=== PATIENT | female | born 1990 | race Two or more races ===

== ENCOUNTER 2018-12-22 20:32 | Emergency (ER) | payer MEDICAID ==
[~2018-12-22] VITALS: Ht 152.4 cm; Wt 88.5 kg
--- NOTE | 2018-12-22 20:39 | NUR ---
PT CAME IN TO ER BIB [facility] WITH AT BEDSIDE WITH C/O DIZZINESS. PT STATES THAT A FEW DAYS AGO SHE HAD BEEN PRESCRIBED BACTRIM BY HER DOCTOR BECAUSE SHE WAS UNABLE TO URINATE. SHE HAD DIARRHEA AFTER TAKING BACTRIM. PATIENT STATES THAT SHE HAD THEN FELT DIZZY WHEN SHE LAID ON HER BED. AAOX4. NO SOB. BREATHING EVENLY AND UNLABORED. CONNECTED TO MONITOR.
--- NOTE | 2018-12-22 20:46 | NUR ---
PA ZEPHYUR AT BEDSIDE
--- NOTE | 2018-12-22 20:55 | NUR ---
PARENTS AT BEDSIDE
[2018-12-22] MEDS ORDERED: IV NS 0.9% 500 ML BAG IV ONE (21:00)
[2018-12-22] MEDS ORDERED: MECLIZINE HCL 12.5 MG TABLET PO ONE (21:00)
[2018-12-22] MEDS ORDERED: MECLIZINE HCL 25 MG TABLET ONE (21:02)
[2018-12-22 21:15] LABS: BASOPHILS # (AUTO) 0.1 /CMM (0.0-0.2); EOSINOPHILS % (AUTO) 0.3 % (0.0-6.0); HEMATOCRIT 39 % (33-45); LYMPHOCYTES # (AUTO) 2.5 /CMM (0.8-4.8); LYMPHOCYTES % (AUTO) 23.6 % (20.0-44.0); MEAN CORPUSCULAR HGB CONC 34 g/dl (31.0-36.0); MEAN CORPUSCULAR VOLUME 85 fL (82-100); MONOCYTES # (AUTO) 0.5 /CMM (0.1-1.30); MONOCYTES % (AUTO) 4.5 % (2.0-12.0); NEUTROPHILS # (AUTO) 7.4 /CMM (1.8-8.9); NEUTROPHILS % (AUTO) 70.6 % (43.0-81.0); PLATELET COUNT (AUTO) 328 /CMM (150-450); RED BLOOD CELL COUNT(AUTO) 4.56 MIL/uL (4.0-5.2); WHITE BLOOD COUNT (AUTO) 10.5 K/uL (4.3-11.0)
[2018-12-22 21:27] LABS: CALCIUM, SERUM 9.2 mg/dL (8.5-10.1); CREATININE 0.6 mg/dL (0.6-1.3); POTASSIUM 3.8 mmol/L (3.5-5.1)
--- NOTE | 2018-12-22 21:43 | NUR ---
PATIENT AMBULATED WITH TO RESTROOM
--- NOTE | 2018-12-22 22:49 | NUR ---
urine sent to lab
[2018-12-22 23:03] LABS: APPEARANCE,URINE Clear (CLEAR); BILIRUBIN,URINE Negative (NEGATIVE); BLOOD, URINE Negative Ery/uL (NEGATIVE); COLOR,URINE Light yellow (YELLOW); KETONES,URINE Negative (NEGATIVE); LEUKOCYTE ESTERASE ,URINE Negative (NEGATIVE); NITRITE, URINE Negative (NEGATIVE); PROTEIN,URINE Negative (NEGATIVE); UGLUCOSE Negative (NEGATIVE); UROBILINOGEN,URINE 0.2 EU/dL (0.2)
--- NOTE | 2018-12-22 23:33 | NUR ---
Patient discharged to home in stable condition. Written and verbal after care instructions given. Patient verbalizes understanding of instruction.IV removed. Catheter intact and site benign. Pressure and 4x4 applied to site. No bleeding noted. Pt ambulatory with a steady gait
[2018-12-22 23:35] VITALS: BP 131/83
== END 2018-12-22 23:35 | disposition home or self-care (01) ==
LOC: ER 20:32
DX: R42 Dizziness and giddiness (principal)
CPT/HCPCS: 36415; 80048; 81001; 84703; 85025; 93005; 99284; J7040; J8597; 81000-TC